=== PATIENT | male | born 1960 | race African-American/Black ===

== ENCOUNTER 2016-03-13 17:11 | Emergency (ER) | payer OTHER ==
[~2016-03-13] VITALS: Ht 182.9 cm; Wt 117.8 kg
[~2016-03-13 17:11] MED LIST: ADVAIR 250/501 DISK IH; ADVAIR 500/501 DISK IH; ASPIR-LOW81 MG PO; Advair HFA 115/21 IH; CARDIZEM CD,CA240 MG PO; CARDIZEM LA420 MG PO; CHERATUSSIN AC473 ML PO; COMBIVENT200 INHALA IH; Cardizem CD,Cartia X PO; Combivent IH; DILTIAZEM 24HR240 MG PO; DUONEB 2.5-0.5 M3 ML AEROSOL; DUONEB 2.5-0.5 M3 ML IH; FAMOTIDINE40 MG PO; FLEXERIL10 MG PO; FLONASE16 G1 BOTH NARES; HYDROCHLOROTHIA25 MG PO; HYDROCHLOROTHIAZIDE PO; Hydrodiuril,Oretic,E PO; INDOMETHACIN25 MG PO; Indocin PO; LEVOFLOXACIN750 MG PO; LISINOPRIL PO; LISINOPRIL10 MG PO; LISINOPRIL20 MG PO; LOPRESSOR25 MG PO; Levaquin PO; MEDROL DOSEPAK4 MG PO; MOBIC15 MG PO; MONTELUKAST SOD10 MG PO; MOTRIN800 MG PO; MUCINEX600 MG; MUCUS ER600 MG PO; NASACORT AQ16.5 GM BOTH NARES; OMEPRAZOLE20 MG PO; PERCOCET 5/31 TABLET PO; PREDNISONE10 MG PO; PREDNISONE20 MG PO; PREDNISONE5 MG PO; PREDNISONE50 MG PO; PROVENTIL,2.5 MG/3 M IH; ROBITUSSIN AC,T10 ML PO; ROBITUSSIN NIG118 ML PO; SINGULAIR10 MG PO; SPIRIVA1 INHALATI IH; SYMBICORT60 INHALAT IH; Singulair PO; TESSALON PERLE100 MG PO; TRAMADOL HCL50 MG PO; VENTOLIN HFA18 GM IH; ZITHROMAX Z-PA250 MG PO; ZITHROMAX250 MG PO; ZYRTEC10 M2 PO; Zestril,Prinivil PO; predniSONE PO
[2016-03-13 18:02] LABS: HEMATOCRIT 40.5 % (38.0-50.0); MCHC 34.6 G/DL (30.0-36.0); MCV 92.5 FL (86-99); MEAN PLAT.VOLUME 8.7 uM^3 (9.0-12.4); PLATELET COUNT 189 K/uL (156-360); RBC DIS.WIDTH-CV 13.4 % (11.8-14.6); RBC DIS.WIDTH-SD 44.3 % (39-53); RED BLOOD COUNT 4.38 M/uL (4.00-5.50); WHITE BLOOD COUNT 8.4 K/uL (4.1-10.2)
[2016-03-13 18:12] LABS: CHLORIDE 104 mEq/L (99-109); POTASSIUM 3.6 mEq/L (3.7-5.4); SODIUM 138 mEq/L (136-147)
[2016-03-13 18:14] LABS: GLUCOSE 81 mg/dL (70-99)
[2016-03-13 18:15] LABS: ANION GAP 11 MEQ/L (2-14)
[2016-03-13 18:18] LABS: GFR ESTIMATE (CALCULATED) > 59 mL/min/
[2016-03-13 18:19] LABS: UREA NITROGEN (BUN) 12 mg/dL (9-23)
[2016-03-13 19:30] VITALS: BP 155/100
== END 2016-03-13 19:57 | disposition left against medical advice (07) ==
LOC: EME 17:11
DX: J45.901 Unspecified asthma with (acute) exacerbation (principal); I10 Essential (primary) hypertension; Z87.442 Personal history of urinary calculi; Z87.891 Personal history of nicotine dependence
CPT/HCPCS: 71020; 80048; 85027; 94644; 99281; 99284; J7512

== ENCOUNTER 2016-06-04 01:57 | Emergency (ER) | payer OTHER ==
[~2016-06-04] VITALS: Ht 180.3 cm; Wt 105.7 kg
[2016-06-04 02:40] LABS: MCH 30.1 PG (29.0-34.0); MCHC 32.8 G/DL (30.0-36.0); MCV 91.7 FL (86-99); MEAN PLAT.VOLUME 8.4 uM^3 (9.0-12.4); PLATELET COUNT 305 K/uL (156-360); RBC DIS.WIDTH-CV 12.9 % (11.8-14.6); RBC DIS.WIDTH-SD 43.1 % (39-53); RED BLOOD COUNT 4.69 M/uL (4.00-5.50); WHITE BLOOD COUNT 12.2 K/uL (4.1-10.2)
[2016-06-04 02:55] LABS: CHLORIDE 105 mEq/L (99-109); POTASSIUM 3.5 mEq/L (3.7-5.4); SODIUM 142 mEq/L (136-147)
[2016-06-04 02:57] LABS: GLUCOSE 126 mg/dL (70-99)
[2016-06-04 02:59] LABS: ANION GAP 12 MEQ/L (2-14)
[2016-06-04 03:01] LABS: GFR ESTIMATE (CALCULATED) > 59 mL/min/
[2016-06-04 03:02] LABS: UREA NITROGEN (BUN) 14 mg/dL (9-23)
[2016-06-04 03:22] LABS: INFLUENZA A VIRAL ANTIGEN NEGATIVE; INFLUENZA B VIRAL ANTIGEN NEGATIVE
[2016-06-04] MEDS ORDERED: PREDNISONE20 MG PO (03:47)
[2016-06-04] MEDS ORDERED: ZITHROMAX Z-PA250 MG PO (03:47)
[2016-06-04] MEDS ORDERED: DUONEB 2.5-0.5 M3 ML AEROSOL (03:47)
[2016-06-04] MEDS ORDERED: ALBUTEROL2.5 MG/3 M IH (03:47)
[2016-06-04 03:52] VITALS: BP 182/98
== END 2016-06-04 03:56 | disposition home or self-care (01) ==
LOC: EME 01:57
PROVIDERS: Emergency Medicine
DX: J45.901 Unspecified asthma with (acute) exacerbation (principal); J20.9 Acute bronchitis, unspecified; I10 Essential (primary) hypertension; Z87.442 Personal history of urinary calculi; G47.30 Sleep apnea, unspecified; F17.200 Nicotine dependence, unspecified, uncomplicated
CPT/HCPCS: 71020; 80048; 85027; 87502; 94640; 99281; 99284; J7512

== ENCOUNTER 2017-07-31 09:53 | Emergency (ER) | payer OTHER ==
[~2017-07-31] VITALS: Ht 182.9 cm; Wt 107.8 kg
[~2017-07-31 09:53] MED LIST changes: +ALBUTEROL2.5 MG/3 M IH
[2017-07-31] MEDS ORDERED: VENTOLIN HFA18 GM IH (11:18)
[2017-07-31] MEDS ORDERED: MUCINEX600 MG PO (11:18)
[2017-07-31] MEDS ORDERED: PREDNISONE20 MG PO (11:18)
[2017-07-31 12:09] VITALS: BP 140/87
== END 2017-07-31 12:18 | disposition home or self-care (01) ==
LOC: EME 09:53
DX: J45.909 Unspecified asthma, uncomplicated (principal); R05 Cough; I10 Essential (primary) hypertension; Z87.891 Personal history of nicotine dependence; G47.30 Sleep apnea, unspecified
CPT/HCPCS: 71046; 94644; 99281; 99284; J1100

== ENCOUNTER 2017-08-30 23:38 | Emergency (ER) | payer OTHER ==
[~2017-08-30] VITALS: Ht 182.9 cm; Wt 112.5 kg
[~2017-08-30 23:38] MED LIST changes: +MUCINEX600 MG PO
[2017-08-31] MEDS ORDERED: PREDNISONE20 MG PO (01:24)
[2017-08-31 01:40] VITALS: BP 124/83
== END 2017-08-31 01:40 | disposition home or self-care (01) ==
LOC: EME 23:38
DX: J45.909 Unspecified asthma, uncomplicated (principal); R94.31 Abnormal electrocardiogram [ECG] [EKG]; I10 Essential (primary) hypertension; Z87.891 Personal history of nicotine dependence
CPT/HCPCS: 71045; 80048; 82803; 83605; 83880; 84484; 85027; 87040; 93005; 94640; 99281; 99285; J1100

== ENCOUNTER 2017-09-22 23:32 | Emergency (ER) | payer OTHER ==
[~2017-09-22] VITALS: Ht 182.9 cm; Wt 109.5 kg
[2017-09-23] MEDS ORDERED: PREDNISONE20 MG PO (02:38)
[2017-09-23] MEDS ORDERED: ZITHROMAX250 MG PO (02:38)
[2017-09-23 02:50] VITALS: BP 142/83
== END 2017-09-23 02:55 | disposition home or self-care (01) ==
LOC: EME 23:32
DX: J45.901 Unspecified asthma with (acute) exacerbation (principal); I10 Essential (primary) hypertension; Z87.891 Personal history of nicotine dependence
CPT/HCPCS: 94640; 99281; 99285; J2930; J7512